=== PATIENT | female | born 1985 | race Caucasian/White ===

== ENCOUNTER 2021-05-07 15:55 | Emergency (ER) | payer OTHER, MEDICAID, SELFPAY ==
--- NOTE | 2021-05-07 | ECG_ITS ---
Test Reason : PALPITATIONS Blood Pressure : / mmHG Vent. Rate : 079 BPM Atrial Rate : 079 BPM P-R Int : 138 ms QRS Dur : 080 ms QT Int : 364 ms P-R-T Axes : 065 072 014 degrees QTc Int : 417 ms Normal sinus rhythm Normal ECG No previous ECGs available Referred By: Generic ED Physician Electronically Signed By:Que Vallejo
--- NOTE | ~2021-05-07 | XR_ITS ---
EXAMINATION: XR CHEST CLINICAL INFORMATION: Chest pain COMPARISON: None TECHNIQUE: Frontal view of the chest was obtained. FINDINGS: No significant abnormality is noted involving the heart, lungs, mediastinum, bony thorax or soft tissues. XR/XR chest 1V IMPRESSION: Normal chest x-ray.
[2021-05-07 17:33] LABS: Basophils Percent Auto 0.4 % (0-2); Eosinophils Absolute Auto 0.1 X10*3/uL (0.0-0.4); Eosinophils Percent Auto 0.7 % (0-4); Hematocrit 42.7 % (37.0-47.0); Hemoglobin 14.8 g/dl (12.0-16.0); Imm Gran Abs Auto 0.02 X10*3/uL (0.00-0.03); Imm Gran Pct Auto 0.2 % (0.0-0.4); Lymphocytes Percent Auto 28.1 % (20-40); MANUAL DIFF FLAG NO; Mean Corpuscular HGB Conc 34.7 g/dl (31.0-35.0); Mean Corpuscular Hemoglobin 31.2 pg (27.0-33.0); Mean Corpuscular Volume 90.1 fL (80.0-98.0); Monocytes Absolute Auto 0.8 X10*3/uL (0.1-1.2); Monocytes Percent Auto 7.4 % (2-11); Neutrophils Absolute Auto 6.7 x10*3/uL (2.0-8.3); Neutrophils Percent Auto 63.2 % (45-73); Platelet Count 281 X10*3/uL (160-400); Red Blood Count 4.74 X10*6/uL (4.20-5.50); Red Cell Distribution Width 12.6 % (11.0-16.0); White Blood Count 10.6 X10*3/uL (4.8-10.8)
[2021-05-07 17:34] LABS: Appearance Urine HAZY; Color Urine DK YELLOW; Glucose Urine UA NEG (NEG); Leukocyte Esterase Urine NEG (NEG); Nitrite Urine NEG (NEG); Specific Gravity - Urine >= 1.030 (1.005-1.025); Urine Blood NEG (NEG); Urine Ketones 5 MG/DL (NEG); Urine Protein NEG (NEG-TRACE)
[2021-05-07 17:47] VITALS: BP 139/84; PULSE 84; RESP 16; TEMP 36.6; O2SAT 100; BMI 27.3
[2021-05-07 17:50] LABS: Anion Gap 14 (12-20); Blood Urea Nitrogen 15 mg/dL (9-16); Calcium 10.1 mg/dL (8.4-10.2); Carbon Dioxide 25 mmol/L (22-29); Chloride 108 mmol/L (96-108); Estimated Glomerular Filt Rate > 60; Glucose Random 89 mg/dL (60-115); Potassium 4.1 mmol/L (3.3-5.1); Sodium 143 mmol/L (135-145)
[2021-05-07 17:55] LABS: Troponin-I High Sensitivity < 3.5 ng/L (<3.5-17.0)
[2021-05-07 21:00] VITALS: BP 126/82; PULSE 73; RESP 18; TEMP 36.9; O2SAT 98
--- NOTE | 2021-05-07 21:33 | ED.CHESTPAIN ---
HPI - Chest Pain General Chief Complaint: Chest Pain Stated Complaint: Palpitations Time Seen by Provider: 05/07/21 19:21 Source: patient Mode of arrival: ambulatory Limitations: no limitations History of Present Illness HPI narrative: 35-year-old female who presents emergency department for evaluation of chest pain. The patient states that she has been experiencing intermittent chest pain for approximately 2 months. She states initially she would get the chest pain 2 times a week. She states however over the past week she has been getting the chest pain daily. She states that the chest pain comes on in the morning and at night when she is resting. She has not had the chest pain with exertion. She points to her left chest when asked to localize the pain. She describes the pain as squeezing sensation which is moderate in intensity. The pain will last approximately 5 minutes. She states that she has been having left arm pain which has been constant and not solely related to her chest pain. She states that she has had dyspnea on exertion mainly when she walks up stairs but this is been chronic for 1-2 months. She has not had any fever, chills, neck pain, jaw pain, back pain, pain or swelling in her lower extremities, lightheadedness, diaphoresis associated with her chest pain. The patient saw her PCP for this chest pain and was told that she had ST segment depression in leads 2, 3 and AVF and the patient was advised to follow-up with a nuclear engineering technician. She states that the next cardiology appointment is in June of 2021. She became concerned since her pain became more frequent this week therefore she came to the emergency department for evaluation. Patient does take control pills. She has no known risk factors for coronary artery disease. Her father is 65 years old and has not had a myocardial infarction, her mother is 60 years old and has not had a myocardial infarction. The patient's sister is 36-year-old and has diabetes but has not had a heart attack. Related Data Allergies Allergy/AdvReac Type Severity Reaction Status Date / Time No Known Allergies Allergy Verified 05/07/21 17:47 Review of Systems Review of Systems: Yes all other systems are reviewed and are negative COUNTS INCLUDE 234 BEDS AT THE [facility] Past Medical History COUNTS INCLUDE 234 BEDS AT THE [facility] Narrative: Past medical history: Anxiety. Past surgical history: None. Social history: She denies tobacco use, she occasionally drinks alcohol, she uses edible marijuana for her anxiety. Family history this was reviewed in the HPI. Social History Social History Advance Directives: No Advance Directives Information Provided: Yes Patient : No Physical Exam Vital Signs: Vital Signs: Last Vital Signs Temp 98.4 F 05/07/21 21:00 Pulse 73 05/07/21 21:00 Resp 18 05/07/21 21:00 BP 126/82 05/07/21 21:00 Pulse Ox 98 05/07/21 21:00 BMI result Body Mass Index 27.3 Const: General: cooperative and no acute distress Orientation/consciousness: oriented to person and oriented to place Limitations: no limitations HENMT: Head: Yes normal to inspection, Yes normocephalic and Yes atraumatic Ears: external ears normal General nose exam: Normal external nose present Face and sinus: Yes normal facial exam Mouth: Normal oral and palatal mucosa present Throat: Yes posterior oropharynx normal Eyes: General: appearance normal, both eyes and all related structures Pupils: Equal, round and reactive pupils present Neck: Neck: Yes normal visual inspection, Yes no lymphadenopathy, Yes trachea midline and Yes supple Chest: Chest palpation & inspection: normal inspection of the chest and tenderness ( Mild left chest wall tenderness) Resp: Effort & Inspection: normal respiratory effort and able to speak in complete sentences Auscultation: clear to auscultation bilaterally Cardio: Rate: regular rate Rhythm: regular rhythm Heart sounds: S1 normal heart sound present, S2 normal heart sound present and no murmurs GI: Inspection: Yes normal to inspection Palpation (GI): Soft to palpation, nontender and no guarding Auscultation: normal bowel sounds : General: Yes no CVA tenderness Back/Spine/Pelvis: Back: no CVA tenderness Skin: General skin exam: no rashes or lesions noted Neuro: General: oriented to person and oriented to place Cranial nerves: Yes CN's II-XII intact bilaterally and Yes Equal, round and reactive pupils present Cognition (Neuro): normal cognition Motor exam (neuro): 5/5 motor strength present throughout Extrem: General: Yes normal to inspection Psych: Appearance: grossly normal Speech and movement: Normal speech and movement present Affect: normal affect Attitude: cooperative Thought process: Normal thought process present Thought content: Normal thought content present Course Course Course Narrative: 35-year-old female who presents emergency department for evaluation of intermittent chest pain x2 months, with increased episodes over the past week. The chest pain comes on in the morning at night when the patient is at rest and does not correlate with her exertion level. She has no other concerning associated symptoms and she has no significant cardiac risk factors. She did see her PCP who did an EKG on her and was concerned about ST segment depressions in leads 2 3 and F referred to a nuclear engineering technician. The initial vital signs were normal with an O2 saturation of 100% on room air. Physical examination did reveal left-sided chest wall tenderness otherwise was unremarkable. Laboratory evaluation revealed a normal CBC, CMP and below detectable limits high sensitivity troponin. Chest x-ray was unremarkable. Twelve EKG did reveal normal sinus rhythm rate of 79, the patient has very subtle less than [address] segment depression in 2, 3 and AVF with no other significant abnormalities. At this time I do not think that this EKG represents cardiac ischemia and I do not think that the patient's chest pain is secondary to coronary artery disease I did discuss this with the patient. Patient most likely has costochondritis. The patient was advised to take Tylenol and ibuprofen for pain. She was given printed and verbal instructions discharged home. MDM - Chest Pain Lab Data Result diagrams: 05/07/21 17:27 05/07/21 17:27 Labs: Lab Results 05/07/21 05/07/21 05/07/21 Range/Units 17:27 17:27 17:27 WBC 10.6 (4.8-10.8) X10*3/uL RBC 4.74 (4.20-5.50) X10*6/uL Hgb 14.8 (12.0-16.0) g/dl Hct 42.7 (37.0-47.0) % MCV 90.1 (80.0-98.0) fL MCH 31.2 (27.0-33.0) pg MCHC 34.7 (31.0-35.0) g/dl RDW 12.6 (11.0-16.0) % Plt Count 281 (160-400) X10*3/uL MPV 9.0 L (9.4-12.3) fL Immature Gran % (Auto) 0.2 (0.0-0.4) % Neut % (Auto) 63.2 (45-73) % Lymph % (Auto) 28.1 (20-40) % [place] % (Auto) 7.4 (2-11) % Eos % (Auto) 0.7 (0-4) % Baso % (Auto) 0.4 (0-2) % Lymph # (Auto) 3.0 (1.2-4.9) X10*3/uL [place] # (Auto) 0.8 (0.1-1.2) X10*3/uL Eos # (Auto) 0.1 (0.0-0.4) X10*3/uL Baso # (Auto) 0.0 (0.0-0.2) X10*3/uL Abs Immat Gran (auto) 0.02 (0.00-0.03) X10*3/uL Absolute Neuts (auto) 6.7 (2.0-8.3) x10*3/uL Absolute Nucleated RBC 0.000 (0.0-0.012) X10*3/uL Nucleated RBC % (auto) 0.0 (0.0-0.2) /100WBC Sodium 143 (135-145) mmol/L Potassium 4.1 (3.3-5.1) mmol/L Chloride 108 (96-108) mmol/L Carbon Dioxide 25 (22-29) mmol/L Anion Gap 14 (12-20) BUN 15 (9-16) mg/dL Creatinine 0.86 (0.5-1.4) mg/dL Estim Creat Clear Calc TNP Estimated GFR > 60 Random Glucose 89 (60-115) mg/dL Calcium 10.1 (8.4-10.2) mg/dL Troponin I High Sens < 3.5 (<3.5-17.0) ng/L Urine Color Urine Appearance Urine pH (5.0-8.0) Ur Specific [place] (1.005-1.025) Urine Protein (NEG-TRACE) MG/DL Urine Glucose (UA) (NEG) MG/DL Urine Ketones (NEG) MG/DL Urine Blood (NEG) Urine Nitrite (NEG) Ur Leukocyte Esterase (NEG) 05/07/21 Range/Units 17:28 WBC (4.8-10.8) X10*3/uL RBC (4.20-5.50) X10*6/uL Hgb (12.0-16.0) g/dl Hct (37.0-47.0) % MCV (80.0-98.0) fL MCH (27.0-33.0) pg MCHC (31.0-35.0) g/dl RDW (11.0-16.0) % Plt Count (160-400) X10*3/uL MPV (9.4-12.3) fL Immature Gran % (Auto) (0.0-0.4) % Neut % (Auto) (45-73) % Lymph % (Auto) (20-40) % [place] % (Auto) (2-11) % Eos % (Auto) (0-4) % Baso % (Auto) (0-2) % Lymph # (Auto) (1.2-4.9) X10*3/uL [place] # (Auto) (0.1-1.2) X10*3/uL Eos # (Auto) (0.0-0.4) X10*3/uL Baso # (Auto) (0.0-0.2) X10*3/uL Abs Immat Gran (auto) (0.00-0.03) X10*3/uL Absolute Neuts (auto) (2.0-8.3) x10*3/uL Absolute Nucleated RBC (0.0-0.012) X10*3/uL Nucleated RBC % (auto) (0.0-0.2) /100WBC Sodium (135-145) mmol/L Potassium (3.3-5.1) mmol/L Chloride (96-108) mmol/L Carbon Dioxide (22-29) mmol/L Anion Gap (12-20) BUN (9-16) mg/dL Creatinine (0.5-1.4) mg/dL Estim Creat Clear Calc Estimated GFR Random Glucose (60-115) mg/dL Calcium (8.4-10.2) mg/dL Troponin I High Sens (<3.5-17.0) ng/L Urine Color DK YELLOW Urine Appearance HAZY Urine pH 6.0 (5.0-8.0) Ur Specific [place] >= 1.030 H (1.005-1.025) Urine Protein NEG (NEG-TRACE) MG/DL Urine Glucose (UA) NEG (NEG) MG/DL Urine Ketones 5 (NEG) MG/DL Urine Blood NEG (NEG) Urine Nitrite NEG (NEG) Ur Leukocyte Esterase NEG (NEG) ECG Data ECG #1: Interpretation: 1716 : Normal sinus rhythm rate of 79, normal RI interval, QRS duration and QTC interval, no ST segment elevation, less than [address] segment depression in leads 2, 3 and AVF, no PACs, no PVCs, Discharge Plan Discharge Clinical Impression: Costalchondritis Chest pain Qualifiers: Chest pain type: other chest pain Qualified Code(s): R07.89 - Other chest pain Patient Disposition: Home, Self-Care Instructions: Costochondritis (ED) Additional Instructions: Your laboratory evaluation was normal. Your troponin which is a marker of heart damage was below detectable limits. Your chest x-ray was normal. Your EKG revealed very subtle ST segment depression, less than 1 mm in your inferior leads ( lead 2, 3 and AVF). I do not think that this is a significant abnormality. However you should follow-up with the nuclear engineering technician as instructed by your doctor. Your chest pain comes on at rest which is reassuring, usually angina ( chest pain secondary to decreased blood flow to your heart) is usually triggered by exertion. Your chest pain is most likely secondary to inflammation of your chest joints. Take ibuprofen 200 mg pills, 3 pills every 6 hours as needed for pain. Take Tylenol (acetaminophen) 500 mg pills, 2 pills every 4 to 6 hours as needed for pain. Follow-up with your doctor in 2 days. Please return to the emergency department if your symptoms get worse or if you develop any symptoms that are concerning to you.
== END 2021-05-07 22:03 | disposition home or self-care (01) ==
PROVIDERS: Emergency Provider Emergency Medicine Emergency Medical Services; PCP Internal Medicine
DX: M94.0 Chondrocostal junction syndrome [Tietze] (principal); R00.2 Palpitations; R07.89 Other chest pain; Z79.899 Other long term (current) drug therapy
CPT/HCPCS: 36415; 71045; 80048; 81003; 84484; 85025; 93005; 99283; 99284

== ENCOUNTER 2023-02-02 09:06 | Outpatient (AMB) | payer OTHER, SELFPAY ==
--- NOTE | 2023-02-02 10:33 | AM.OFFWIN_ITS ---
Intake Vital Signs 02/02/23 10:36 Height 5 ft 10 in Weight 178 lb BMI 25.5 BP 118/68 Blood Pressure Location Rt brachial Position Sitting Pulse 55 Pulse Source Pulse Oximeter Pulse Oximetry (%) 99 Oxygen Delivery Method Room Air Intake Visit Reasons: bilateral ear pain x2 days Intake Note: Patient here for bilat ear pain, it started with left ear on Monday. Patient Tobacco Use Status: Former Tobacco user Allergies No Known Allergies Allergy (Verified 02/02/23 10:37) Do you need a note to return to daycare/school/sports/work: No HPI HPI Comments History of Present Illness Details 37-year-old female who presents with bilateral ear pain. Feels cloudy denies fevers or chills PFSH Social History Patient Tobacco Use Status: Former Tobacco user Review of Systems Const All systems reviewed & are unremarkable except as noted in HPI and below ENT Reports otalgia Physical Exam Vital Signs: Last Vital Signs Pulse 55 02/02/23 10:36 BP 118/68 02/02/23 10:36 Pulse Ox 99 02/02/23 10:36 Oxygen Delivery Method Room Air 02/02/23 10:36 BMI result Body Mass Index 25.5 Const General: no acute distress and alert HEENT Other: bilateral effusions. TM visualized no erythema no cloudiness no tragal tend erness Assessment & Plan Assessment & Plan (1) Ear pain: Code(s): H92.09 - Otalgia, unspecified ear Plan symptoms examination consistent with bilateral ear effusions likely viral recommend antihistamines. Discharge instructions, follow up and treatment are discussed with patient in my usual fashion. Alternatives in treatment are also discussed. The patient will return for worsening symptoms or as needed. Advised that any labs/imaging ordered will be followed up on and contact made if further treatment needed. Counseled that patient's condition may require further evaluation and/or treatment. Symptoms of concern for worsening disorder discussed in detail in my customary manner. Patient does verbalize understanding of the plan, there are no apparent barriers to communication. The patient is given the opportunity to ask questions and have them answered to his/her satisfaction Coding Level of Care Code Est Pt Level 2 (97409) Diagnoses Ear pain H92.09
[2023-02-02 10:36] VITALS: BP 118/68; PULSE 55; O2SAT 99; BMI 25.5
== END 2023-02-02 10:44 | disposition home or self-care (01) ==
PROVIDERS: PCP Internal Medicine; Visit Provider Physician Assistant
DX: H92.09 Otalgia, unspecified ear (principal)
CPT/HCPCS: 99212